=== PATIENT | male | born 1980 | race Caucasian/White ===

== ENCOUNTER 2017-04-29 11:51 | Emergency (ER) | payer OTHER ==
[2017-04-29 12:00] VITALS: BP 140/100; PULSE 102; TEMP 98.5; BMI 26.6
--- NOTE | 2017-04-29 13:57 | PDOC ---
History of Present Illness - General Chief Complaint: Hemorrhoids Stated Complaint: HEMORRHOIDS Time Seen by Provider: 04/29/17 13:55 History Source: Patient Exam Limitations: No Limitations - History of Present Illness Initial Comments: CHIEF COMPLAINT: 36 y/o afebrile male with PMH hemorrhoids c/o hemorrhoid pain for the past 5 days with some bleeding. HISTORY OF PRESENT ILLNESS: The patient states he has a history of hemorrhoids and normally uses preparation H, and the hemorrhoid improves. He started having hemorrhoid pain 5 days ago. He has been using preparation H and it's not helping. He states he is having a little bleeding from the hemorrhoid as well. He denies all other symptoms. Vital signs on arrival are notable for pulse of 102. REVIEW OF SYSTEMS: GENERAL/CONSTITUTIONAL: No fever/chills. No weakness. No weight change. GASTROINTESTINAL: No abd pain, nausea, vomiting, diarrhea, constipation. + hemorrhoids GENITOURINARY: No dysuria, frequency, or change in urination. SKIN: No rash or easy bruising. NEUROLOGIC: No headache, vertigo, loss of consciousness, or loss of sensation. PHYSICAL EXAM: GENERAL: The patient is awake, alert, and fully oriented, in no acute distress. HEAD: Normal with no signs of trauma. ABDOMEN: No pain with palpation, rebound, guarding, rigidity. RECTUM: 1cm prolapsed hemorrhoid on left external rectum without signs of strangulation. The hemorrhoid is reducible but the patient states he cannot tolerate the reduction. No active bleeding. EXTREMITIES: Normal range of motion, no edema. NEUROLOGICAL: Normal speech, normal gait. SKIN: Warm, Dry, normal turgor, no rashes or lesions noted. Past History - Past Medical History Allergies/Adverse Reactions: Allergies Allergy/AdvReac Type Severity Reaction Status Date / Time No Known Allergies Allergy Verified 04/29/17 11:57 Home Medications: Ambulatory Orders Hydrocortisone Acetate [Anusol Hc Suppository -] 25 mg RC BID #28 supp.rect Witch Anitra 50% (Tucks) [Tucks Witch Anitra Pads] 1 pad TP QID #50 pad 04/29/17 Thyroid Disease: Yes Other medical history: hemorrhoids - Psycho/Social/Smoking Cessation Hx Anxiety: No Suicidal Ideation: No Smoking History: Never smoked Have you smoked in the past 12 months: No Information on smoking cessation initiated: No Hx Alcohol Use: No Drug/Substance Use Hx: No Substance Use Type: None *Physical Exam - Vital Signs Last Vital Signs Temp Pulse Resp BP Pulse Ox 98.5 F 102 H 18 140/100 100 04/29/17 11:57 04/29/17 11:57 04/29/17 11:57 04/29/17 11:57 04/29/17 11:57 Medical Decision Making - Medical Decision Making A/P: 36 y/o male with a prolapsed, non strangulated hemorrhoid. Plan is to discharge to home with tucks pads and anusol suppositories. The patient wants to have it removed so I provided him with a referral for a surgeon. Pt instructed to call surgeon today to schedule follow up appointment and return to the ER with any worsening or concerning symptoms. The patient verbalizes understanding of all instructions, has no further questions and is awaiting discharge. *DC/Admit/Observation/Transfer Diagnosis at time of Disposition: Hemorrhoid prolapse - Discharge Dispostion Disposition: HOME Condition at time of disposition: Good - Referrals Referrals: Allan Grewal MD [Primary Care Provider] - Alexis Ortega MD [Staff Physician] - Call tomorrow - Patient Instructions Printed Discharge Instructions: DI for Hemorrhoids Additional Instructions: Discharge Instructions: -2 prescriptions have been called to your pharmacy; please use as prescribed -Call Dr. Ortega today to schedule a follow up appointment -Take over the counter miralax to soften your stool to help make bowel movements less painful -Use Sitz baths to help with pain -Return to the ER with any worsening or concerning symptoms Instrucciones de yohana: -2 recetas arcos sido llamadas a hogan farmacia; Por favor use albert prescrito - Llame al Dr. Shannon powers para programar lisseth jennifer de seguimiento -Foss ms de la miralax contador para suavizar hogan heces para ayudar a hacer los movimientos intestinales menos dolorosa -Utilizar baos de asiento para ayudar con el dolor -Vuelva a la merry de emergencias con cualquier empeoramiento o con respecto a los sntomas Print Language: DANISH
== END 2017-04-29 14:46 | disposition home or self-care (01) ==
LOC: JERFT 11:51
DX: K64.8 Other hemorrhoids (principal)
CPT/HCPCS: 99281-25

== ENCOUNTER 2017-07-09 09:17 | Day surgery (SDC) | payer OTHER ==
[2017-07-08 13:13] VITALS: BMI 28.0
[2017-07-09] MEDS ORDERED: PROPOFOL 20 ML ONE ×5 (11:05)
[2017-07-09 11:35] VITALS: TEMP 97.8
[2017-07-09 12:40] VITALS: BP 106/70; PULSE 83
== END 2017-07-09 12:40 | disposition home or self-care (01) ==
LOC: JASU-ENDO 09:17
PROVIDERS: ATTEND Internal Medicine Gastroenterology
PROC: 0DJD8ZZ Inspection of Lower Intestinal Tract, Via Natural or Artificial Opening Endoscopic (ICD-10-PCS; principal; 2017-07-09 10:00)
DX: K62.5 Hemorrhage of anus and rectum (principal); K57.30 Diverticulosis of large intestine without perforation or abscess without bleeding; K64.8 Other hemorrhoids